=== PATIENT | male | born 1940 | race Caucasian/White ===

== ENCOUNTER 2018-04-10 13:43 | Inpatient (IN) | payer OTHER ==
[2018-04-10] MEDS ORDERED: Lorazepam 2 MG/ML VIAL ONE (14:43)
[2018-04-10 17:21] VITALS: BMI 37.3
[2018-04-10] MEDS ORDERED: Ondansetron ODT 4 MG TAB PO PRN (18:44)
[2018-04-10] MEDS ORDERED: hydrALAZINE 20 MG/ML VIAL SLOW IVP PRN (18:44)
[2018-04-10] MEDS ORDERED: Acetaminophen 500 MG TAB PO PRN (18:44)
[2018-04-10] MEDS ORDERED: traMADol HCl 50 MG TAB PO PRN (18:44)
[2018-04-10] MEDS ORDERED: Ondansetron HCl/PF 4 MG/2 ML Vial IVP PRN (18:44)
[2018-04-10] MEDS ORDERED: PROVENTIL INHALER 6.7 G (200 INHALATIONS) INH PRN (18:45)
[2018-04-10] MEDS ORDERED: Cyclobenzaprine 10 MG TAB PO PRN (19:23)
[2018-04-10] MEDS: Famotidine 20 MG TAB PO SCH (21:08)
[2018-04-10] MEDS: Atorvastatin Calcium 40 MG TAB PO SCH (21:19)
--- NOTE | 2018-04-11 00:54 | HP ---
DATE OF ADMISSION: 04/10/2018 ADMISSION HISTORY AND PHYSICAL PRIMARY CARE PHYSICIAN: [facility] in [place], [place]. CHIEF COMPLAINT: Left leg and arm weakness. HISTORY OF PRESENT ILLNESS: This is a 77-year-old, male, who presents to [facility] in transfer from [facility] where he initially presented with le ft-sided leg and upper extremity weakness concerning for potential CVA. The patient reports he had a prior CVA approximately 1-1/2 years prior to this evaluation with residual left arm and left lower e xtremity weakness, requiring a cane and walker for ambulation. The patient has been receiving home p hysical therapy due to increasing weakness, rigidity in the context of known and recently diagnosed P arkinson disease. The patient denies any recent fall, injury, fever, chills, change to bowel habits or nausea or vomiting. The patient denies any specific left-sided facial droop or difficulty with sp eech. The patient's history is also significant for ongoing chemotherapy for leukemia, receiving isabelle motherapy treatments 5 days of the week monthly over 6 months period of time. The patient's last taylor atment according to the was 03/22/2018. The patient denies taking any chronic aspirin therapy a nd states that if he takes aspirin, his blood pressure dips too low and he becomes dizzy and symptoma tic. In the emergency room, the patient underwent general evaluation including CT of the brain showi ng proximal M1 segment stenosis; however, review by the neurosurgical service recommended no specific intervention. The patient received Ativan 0.5 mg IV x1 dose after complaints of muscle spasm in the left biceps. The patient has noted spasm and pain in the left bicep region over the last 12 hours. PAST MEDICAL HISTORY: 1. Parkinson disease, no current treatment. 2. Leukemia with current chemotherapy. Last treatment, 03/22/2018. 3. History of cerebrovascular accident with residual left-sided weakness. 4. Hyperlipidemia. 5. Question of diabetes mellitus without current therapy. 6. Obesity. 7. 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 PAST SURGICAL HISTORY: 1. Status post coronary artery bypass grafting x3 vessels in 1998. 2. Status post coronary artery bypass grafting x4 vessels in 1996. CURRENT MEDICATIONS: 1. Albuterol metered dose inhaler 90 mcg inhale daily p.r.n. 2. Lasix 20 mg p.o. daily. 3. Levothyroxine 175 mcg p.o. daily. ALLERGIES: To PENICILLIN. FAMILY HISTORY: Positive for hypertension. SOCIAL HISTORY: The patient is and resides in [place], [place]. . No curren t alcohol, tobacco or illicit drug use. Ambulatory with use of a cane. Remote history of tobacco us e, quitting less than 10 years prior to this evaluation. REVIEW OF SYSTEMS: The following complete review of systems was negative, unless otherwise negative except as stated per HPI: Constitutional: Weight loss or gain, ability to conduct usual activities. Skin: Rash, itching. Eyes: Double vision, pain. ENT/Mouth: Nose bleeding, neck stiffness, pain , tenderness. Cardiovascular: Palpitations, dyspnea on exertion, orthopnea. Respiratory: Shortnes s of breath, wheezing, cough, hemoptysis, fever or night sweats. Gastrointestinal: Poor appetite, a bdominal pain, heartburn, nausea, vomiting, constipation, or diarrhea. Genitourinary: Urgency, freq uency, dysuria, nocturia. Musculoskeletal: Pain, swelling. Neurologic/Psychiatric: Anxiety, depre ssion. Allergy/Immunologic: Skin rash, bleeding tendency. PHYSICAL EXAMINATION: VITAL SIGNS: On admission in the emergency room, blood pressure 171/100, pulse 62, respiratory rate 20, temperature 98 degrees Fahrenheit, O2 saturation 100% on room air. GENERAL APPEARANCE: This is a 77-year-old, male, alert and oriented x3, pleasant, responsi ve, in no acute distress. HEENT: Pupils are equal, round, and reactive to light and accommodation. Extraocular muscles are in tact. No scleral icterus, no conjunctival injection. Nares patent. OP is clear. Teeth in fair rep air. NECK: Supple, no cervical adenopathy, no thyromegaly, no carotid bruits, no JVD appreciated. Cervic al spine with full active and passive range of motion. CHEST: Lungs are clear to auscultation bilaterally. CARDIOVASCULAR: S1, S2, without noted murmur, rub or gallop. ABDOMEN: Obese, soft, nontender, nondistended. Bowel sounds are positive in all four quadrants. Th ere is no hepatosplenomegaly, no abdominal bruits, no rebound or guarding appreciated. EXTREMITIES: Warm and dry with fair turgor. No clubbing, cyanosis or asymmetric edema appreciated. Pulses palpable distally at the dorsalis pedis, posterior tibial, and popliteal arteries bilaterally . Capillary refill less than 2 seconds. NEUROLOGIC: Left upper extremity weakness 4/5, left lower extremity 4/5. Resting tremor, right uppe r extremity greater than left, consistent with Parkinson's. Rigidity noted in the bilateral elbow an d wrist distribution. Not observed ambulatory during this exam. PERTINENT LABORATORY AND X-RAY FINDINGS: Sodium 141, potassium 4.3, chloride 109, CO2 of 23, BUN 16, creatinine 1.36, estimated GFR 51, glucose 101, calcium 9.1. AST 11, ALT of 7, alkaline phosphatase 88. Troponin I negative x1. Albumin 3.9, lipase 25. CBC showed a white blood cell count of 2.3, h emoglobin 8.3, hematocrit 25, platelet count 29,000 with 15% neutrophils, 68% lymphocytes. PT 13.5, INR 1.0. CT angiogram of the [place] dated 04/10/2018 showed no evidence of intracranial he morrhage or mass effect. Remote lacunar infarcts of the right thalamus. Microvascular ischemic sadler ges of the left external capsule. ASSESSMENT AND PLAN: 1. Transient ischemic attack. The patient will be admitted to the stroke unit. We will continue as pirin 81 mg p.o. daily. Continue general stroke protocol with MRI imaging of the brain to rule out a cute cerebrovascular accident. A 2D transthoracic echocardiogram. Check fasting lipid profile in th e a.m. Neurology consultation in the a.m. 2. Left upper extremity muscle spasm. We will initiate Flexeril 10 mg p.o. at bedtime p.r.n. Gener al supportive management. Physical therapy for general range of motion. 3. Pancytopenia. The patient with current chemotherapy for leukemia. Repeat CBC in the a.m. No ev idence of acute blood loss. 4. Leukemia. We will continue supportive management. The patient will follow up with his medical o ncologist at the [facility] in [place], [place] after discharge. 5. Parkinson disease. Continue supportive management. The patient will follow up on an outpatient basis with Neurology Service at the [facility] in [place], [place]. 6. Hypothyroidism. Continue Synthroid 175 mcg p.o. daily. 7. Chronic kidney disease, stage 3. Avoid nephrotoxic agents and contrast media. Repeat creatinine in the a.m. 8. Prophylaxis. Sequential compression devices while in bed. Pepcid 20 mg p.o. b.i.d. 9. Code status is FULL. Surrogate medical decision maker is patient's spouse.
[2018-04-11 06:01] LABS: Anion Gap 10 mmol/L (10-20); BUN (Urea Nitrogen) 16 mg/dL (8.4-25.7); Calc. Creatinine Clearance 61 mL/min (70-130); Carbon Dioxide 23 mmol/L (23-31); Cardiac Risk 4.4 (Less than 4.5); Chloride 109 mmol/L (98-107); Cholesterol 132 mg/dl (< 200 Desired); Estimated GFR-MDRD 44; Glucose 121 mg/dL (83-110); HDL Cholesterol 30 mg/dL (>60 Neg Risk); LDL Cholesterol, Calculated 88 mg/dL; Magnesium 2.5 mg/dL (1.6-2.6); Potassium 3.9 mmol/L (3.5-5.1); Sodium 138 mmol/L (136-145); Triglycerides 68 mg/dL (Less than 150)
[2018-04-11 06:02] LABS: Anisocytosis SLIGHT = 6-15 cells (100X) (0-5/hpf); Hemoglobin 8.3 g/dL (14.0-18.0); Hypochromia SLIGHT = 6-15 cells (100X) (0-5/hpf); Lymphocytes 62 % (21-51); MDiff Complete? YES; Mean Corpuscular HGB CONC 32.7 g/dL (32.0-36.0); Mean Corpuscular Hemoglobin 27.9 pg (27.0-31.0); Mean Corpuscular Volume 85.2 fL (78.0-98.0); Mean Platelet Volume 13.2 fL (7.4-10.4); Monocytes 6 % (0-10); Neutrophil 32 % (42-75); PLT Morphology Comment Appears Adequate; Platelet Count 33 thou/uL (130-400); Polychromasia SLIGHT = 2-3 cells (100X) (0-2/hpf); RBC Distribution Width 19.8 % (11.5-14.5); Red Blood Cell (RBC) Count 2.98 mill/uL (4.70-6.10); White Blood Cell (WBC) Count 2.2 thou/uL (4.8-10.8)
--- NOTE | 2018-04-11 07:54 | CON ---
DATE OF CONSULTATION: 04/11/2018 CONSULTING PHYSICIAN: Hospitalist Service IMPRESSION: 1. Questionable transient ischemic attack with left-sided weakness. 2. Leukemia. 3. Questionable Parkinson's disease. PLAN: 1. MRI of the brain. 2. Echocardiogram. 3. CTA of the carotids and cerebral vessels. Mr. Moser is a 77-year-old gentleman who reportedly has had a past history of a stroke on the l eft side. [facility] He also is being treated for leukemi a. He reportedly has a history of atrial fibrillation as well and is not on anticoagulation secondar y to his anemia. He was noted by his physical therapist to be a bit weaker on the left side and then he came into the emergency room for evaluation. He was seen in [place] and apparently a CAT scan w as done, results are not available in the system. He reports this morning that his symptoms are bett er, did not note any slurred speech or facial droop. There is no associated headache, nausea, vomiti ng, vertigo or alteration of vision. He reports that there is residual numbness from his prior strok e, primarily affecting the left hand. PAST MEDICAL HISTORY: As noted above. ALLERGIES: PENICILLIN. MEDICATIONS: Aspirin, but no statin. FAMILY HISTORY: Noncontributory. SOCIAL HISTORY: No tobacco or alcohol use. REVIEW OF SYSTEMS: Otherwise, unremarkable. PHYSICAL EXAMINATION: GENERAL: He is a well-nourished elderly gentleman lying in bed in no acute distress. VITAL SIGNS: Blood pressure 127/70, pulse 66, respirations 16, temperature 98.3. HEENT: Pupils equal and reactive. Conjunctivae clear. Oropharynx clear. NECK: No lymphadenopathy. EXTREMITIES: No cyanosis. NEUROLOGIC: He is alert and responsive. His speech is fluent and clear. There is no facial asymmet ry. He seemed to have some diminished hand glove former on the left side. There was a fix on arm roll testi ng. He had antigravity strength in both upper and lower extremities. Sensation was subjectively dec reased in the left hand. No tremor was noted. No other abnormal movements were present. Plantar re sponses were downgoing. Gait was not tested. LABORATORY STUDIES: Chemistry panel was unremarkable. CBC showed a white count of 2.2 and hemoglobi n of 8.3 with platelet count of 33. SUMMARY: A 77-year-old gentleman with a reported history of atrial fibrillation as well as a prior s troke who presents with some subjective left-sided weakness. His exam is a bit equivocal. Proceed w ith further workup and make a determination whether treatment is necessary.
[2018-04-11] MEDS: Furosemide 20 MG TAB PO SCH (08:32)
[2018-04-11] MEDS: Famotidine 20 MG TAB PO SCH ×2 (08:32→22:45)
[2018-04-11] MEDS: Aspirin 81 mg Enteric Coated Tablet PO SCH (08:32)
[2018-04-11] MEDS: Levothyroxine 175 MCG TAB PO SCH (08:32)
[2018-04-11 12:52] LABS: Bilirubin Negative (Negative); Blood, Urine Negative (Negative); Clarity CLEAR (Clear); Glucose, Urine (Dipstick) Negative (Negative); Leukocyte Negative (Negative); Nitrite Negative (Negative); Protein, Urine (Dipstick) 30 mg/dL (Neg-Trace); Specific Gravity, Urine 1.028 (1.002-1.036); pH, Urine 6.5 (5.0-9.0)
[2018-04-11 12:53] LABS: Bacteria/HPF None Seen HPF (None Seen); Hyaline Casts/LPF 0-3 HYALINE CAST LPF (0-3 Hyaline); RBC/HPF 0-3 HPF (0-3); Squamous Epithelial 0-3 HPF (0-3); WBC/HPF 0-3 HPF (0-3)
--- NOTE | 2018-04-11 13:44 | MRI ---
NONCONTRAST MRI BRAIN: Date: 04/11/18 HISTORY: TIA. COMPARISON: Noncontrast CT head on 04/10/18. FINDINGS: There are a few patchy areas of increased FLAIR and T2-weighted signal intensity in the periventricul ar white matter, which are nonspecific, but likely reflective of mild chronic small vessel ischemic c hanges. There is increased T2-weighted signal intensity focus seen within the right thalamus, which l ikely represents a remote lacunar infarction. There is no evidence of an acute infarction. There is mild cerebral volume loss. The ventricular system is normal in size, shape, and position for the degree of sulcal atrophy. Septum pellucidum and third ventricle are in the midline. There is mild irregularity of the right M1 segment flow-void, but this is difficult to assess on this examination. Remainder of the flow-voids at the base of the brain have a normal MRI appearance. [place] lenses are not visualized. Paranasal sinuses are clear. There is increased T2-weighted signal intensity in the region of the right mastoid air cells, likely related to mastoid effusions on the right. IMPRESSION: 1. No acute intracranial abnormality demonstrated. 2. Remote lacunar infarction right thalamus. 3. Mild chronic small vessel ischemic changes and cerebral volume loss. 4. Right mastoid effusions. POS: SEGUNDO
--- NOTE | 2018-04-11 20:33 | PDOC.PN ---
- Subjective Encounter Start Date: 04/11/18 Encounter Start Time: 20:15 Subjective: f/u for L-sided weakness and ? TIA. MRI brain neg for acute process. - Objective Resuscitation Status: Resuscitation Status FULL:Full Resuscitation MAR Reviewed: Yes Vital Signs & Weight: Vital Signs (12 hours) Temp Pulse Resp BP Pulse Ox 04/11/18 20:00 98.0 F 60 19 137/73 98 04/11/18 15:51 97.7 F 59 L 20 135/63 97 04/11/18 12:00 97.6 F 59 L 18 150/65 H 93 L Weight Admit Weight 231 lb 3.2 oz Weight 231 lb 3.2 oz Result Diagrams: 04/11/18 05:27 04/11/18 05:27 Additional Labs: Accuchecks 04/11/18 04/11/18 04/11/18 16:53 10:42 06:35 POC Glucose 127 H 118 H 114 H Laboratory Tests 04/11/18 04/11/18 05:27 05:27 Triglycerides 68 Cholesterol 132 LDL Cholesterol, Calc 88 HDL Cholesterol 30 TSH 3rd Generation 1.3733 Radiology Reviewed by me: Yes (MRI brain - neg for acute process) EKG Reviewed by me: Yes (Tele - Sinus bradycardia) Phys Exam - Physical Examination Constitutional: NAD HEENT: PERRLA, sclera anicteric, oral pharynx no lesions Neck: no nodes, no JVD, supple, full ROM Respiratory: no wheezing, no rales, no rhonchi, clear to auscultation bilateral Cardiovascular: RRR, no significant murmur, no rub, gallop Gastrointestinal: soft, non-tender, no distention, positive bowel sounds Musculoskeletal: pulses present, edema present resting tremor Neurological: normal sensation, moves all 4 limbs flat affect Psychiatric: A&O x 3 Skin: normal turgor, cap refill <2 seconds Dx/Plan (1) Left-sided weakness Code(s): R53.1 - WEAKNESS Status: Chronic Comment: MRI brain negative for acute process, likely residual L-sided weakness due to prior CVA, PT evaluation (2) Parkinson disease Code(s): G20 - PARKINSON'S DISEASE Status: Chronic Comment: Likely contributing factor to muscle weakness and spasm (3) Leukemia Code(s): C95.90 - LEUKEMIA, UNSPECIFIED NOT HAVING ACHIEVED REMISSION Status: Chronic Comment: Continue outpt chemo therapy after d/c (4) CKD (chronic kidney disease), stage III Code(s): N18.3 - CHRONIC KIDNEY DISEASE, STAGE 3 (MODERATE) Status: Chronic Comment: Stable, avoid nephrotoxic meds and limit contrast exposure (5) Hypothyroidism Code(s): E03.9 - HYPOTHYROIDISM, UNSPECIFIED Status: Chronic Comment: Continue Levothyroxine 175mcg daily - Plan PT/OT, drug abuse social worker, out of bed/ambulate, DVT proph w/SCDs Stable overall -: Continue supportive mgmt -: PT for mobilization/ambulation -: 2D echo pending -: Likely d/c home in am * .
[2018-04-11] MEDS: Atorvastatin Calcium 40 MG TAB PO SCH (22:45)
[2018-04-12] MEDS: Aspirin 81 mg Enteric Coated Tablet PO SCH (09:26)
[2018-04-12] MEDS: Famotidine 20 MG TAB PO SCH (09:26)
[2018-04-12] MEDS: Furosemide 20 MG TAB PO SCH (09:26)
[2018-04-12] MEDS: Levothyroxine 175 MCG TAB PO SCH (09:26)
[2018-04-12 11:44] VITALS: BP 137/63; TEMP 98.7
--- NOTE | 2018-04-12 22:11 | DIS ---
DATE OF ADMISSION: 04/10/2018 DATE OF DISCHARGE: 04/12/2018 DISCHARGE DIAGNOSES: 1. Left-sided weakness, questionable etiology, resolved. 2. Parkinson's disease, stable. 3. Leukemia with current chemotherapy. 4. Chronic kidney disease stage 3. 5. Pancytopenia secondary to chemotherapy. 6. Hypothyroidism, stable. CONSULTATION: Dr. Milian with Neurology Service. PERTINENT LABORATORY DATA AND X-RAY FINDINGS: Creatinine ranged between 1.36-1.54, estimated GFR ran ging between 44-51, calcium 9.0, magnesium 2.5, total cholesterol 132, triglycerides 68, HDL 30, LDL 88, TSH 1.37. CBC showed a white blood cell count of 2.2, hemoglobin 8, hematocrit 25, platelet coun t 33. CT angiogram of the brain dated 04/10/2018 showed no acute intracranial process. MRI of the b rain dated 04/11/2018 showed no acute intracranial process. Remote lacunar infarction of the right t halamus. Mild chronic ischemic white matter changes noted. HOSPITAL COURSE: Patient was admitted to the stroke unit after initially presenting with worsening l eft-sided weakness in the context of prior CVA with residual left-sided weakness. The patient underw ent neuro imaging as stated previously showing no acute process. The patient's symptoms resolved wit h supportive management. The patient was evaluated by the Neurology Service without further recommen dations for an acute intervention. The patient was placed on aspirin 81 mg daily. Likely patient's presentation is multifactorial in the context of recent chemotherapy exposure and anemia in the amie xt of pancytopenia due to chemotherapy. The patient overall clinically stable and at baseline functi onal status. I have examined the patient at the time of discharge and discussed followup instruction s. The patient verbalized understanding and agreement and ready for discharge on 04/12/2018. DISCHARGE MEDICATIONS: 1. ProAir RespiClick 90 mcg inhaled daily. 2. Lasix 20 mg p.o. daily. 3. Synthroid 175 mcg p.o. daily. FOLLOWUP: Patient will follow up with the [facility] in [place], [place]. CONDITION ON DISCHARGE: Stable. ACTIVITY: Ad rd. DIET: Heart healthy. CODE STATUS: FULL. SPECIAL INSTRUCTIONS: Patient to continue outpatient physical therapy. DISPOSITION: Home, 04/12/2018.
== END 2018-04-12 13:11 | disposition home or self-care (01) | DRG 809 ==
LOC: ERS 13:43 → 2SE 14:33
PROVIDERS: ADMIT Family Medicine; ATTEND Family Medicine
DX: D61.810 Antineoplastic chemotherapy induced pancytopenia (principal); I69.354 Hemiplegia and hemiparesis following cerebral infarction affecting left non-dominant side; C95.10 Chronic leukemia of unspecified cell type not having achieved remission; G45.9 Transient cerebral ischemic attack, unspecified; G20 Parkinson's disease; N18.3 Chronic kidney disease, stage 3 (moderate); E03.9 Hypothyroidism, unspecified; E11.22 Type 2 diabetes mellitus with diabetic chronic kidney disease; E78.5 Hyperlipidemia, unspecified; I12.9 Hypertensive chronic kidney disease with stage 1 through stage 4 chronic kidney disease, or unspecified chronic kidney disease; Z87.891 Personal history of nicotine dependence; D69.6 Thrombocytopenia, unspecified; E66.9 Obesity, unspecified; D63.1 Anemia in chronic kidney disease; Z95.1 Presence of aortocoronary bypass graft; M62.838 Other muscle spasm; Z68.37 Body mass index [BMI] 37.0-37.9, adult
CPT/HCPCS: 36415; 36416; 70551; 80048; 80061; 81001; 83735; 84443; 85007; 85027; 93306; 96374; J2060

== ENCOUNTER 2018-12-27 09:18 | Emergency (ER) | payer OTHER ==
[2018-12-27 09:58] LABS: INR-International Normal Ratio 1.2; PTT 43.8 SEC (22.9-36.1)
[2018-12-27 10:13] LABS: ALT (SGPT) 11 U/L (8-55); AST (SGOT) 14 U/L (5-34); Albumin 3.7 g/dL (3.4-4.8); Alkaline Phosphatase 91 U/L (40-150); Anion Gap 13 mmol/L (10-20); BUN (Urea Nitrogen) 22 mg/dL (8.4-25.7); Bilirubin, Total 0.7 mg/dL (0.2-1.2); Calc. Creatinine Clearance 0 mL/min (70-130); Carbon Dioxide 22 mmol/L (23-31); Chloride 106 mmol/L (98-107); Estimated GFR-MDRD 41; Globulin 3.9 g/dL (2.4-3.5); Glucose 102 mg/dL (83-110); Potassium 4.1 mmol/L (3.5-5.1); Protein, Total 7.6 g/dL (5.8-8.1); Sodium 137 mmol/L (136-145)
[2018-12-27 10:20] LABS: Hemoglobin 7.6 g/dL (14.0-18.0); Lymphocytes 79 % (21-51); MDiff Complete? YES; Mean Corpuscular HGB CONC 34.2 g/dL (32.0-36.0); Mean Corpuscular Volume 87.6 fL (78.0-98.0); Mean Platelet Volume 15.6 fL (7.4-10.4); Monocytes 3 % (0-10); Neutrophil 9 % (42-75); Platelet Count 12 thou/uL (130-400); RBC Distribution Width 19.4 % (11.5-14.5); Red Blood Cell (RBC) Count 2.54 mill/uL (4.70-6.10); Reflex for Review?? NO; White Blood Cell (WBC) Count 5.2 thou/uL (4.8-10.8)
== END 2018-12-27 10:58 | disposition home or self-care (01) ==
LOC: ERS 09:18
DX: I12.9 Hypertensive chronic kidney disease with stage 1 through stage 4 chronic kidney disease, or unspecified chronic kidney disease (principal); N18.9 Chronic kidney disease, unspecified; D63.1 Anemia in chronic kidney disease; C95.90 Leukemia, unspecified not having achieved remission; L03.113 Cellulitis of right upper limb; D69.6 Thrombocytopenia, unspecified; F43.10 Post-traumatic stress disorder, unspecified; F32.9 Major depressive disorder, single episode, unspecified; Z87.891 Personal history of nicotine dependence
CPT/HCPCS: 80053; 85025; 85060; 85610; 85730; 86850; 86900; 86901; 93005